=== PATIENT | male | born 1975 | race Caucasian/White ===

== ENCOUNTER 2020-05-18 23:47 | Emergency (ER) | payer SELFPAY ==
[2020-05-18] MEDS ORDERED: Sodium Chloride 0.9% 1,000 ML ONE (23:59)
[2020-05-19 00:44] LABS: Hemoglobin 13.4 g/dL (14.0-18.0); Mean Corpuscular HGB CONC 32.3 g/dL (32.0-36.0); Mean Corpuscular Hemoglobin 29.7 pg (27.0-31.0); Platelet Count 224 thou/uL (130-400); RBC Distribution Width 12.3 % (11.5-14.5); Red Blood Cell (RBC) Count 4.53 mill/uL (4.70-6.10); White Blood Cell (WBC) Count 10.2 thou/uL (4.8-10.8)
[2020-05-19 00:45] LABS: #Basophils 0.1 thou/uL (0.0-0.2); #Eosinphils 0.2 thou/uL (0.0-0.7); #Lymphocytes 1.9 thou/uL (1.20-3.40); #Monocytes 0.6 thou/uL (0.11-0.59); #Neutrophils 7.4 thou/uL (1.40-6.50); %Eosinophils 1.5 % (0.0-10.0); %Lymphocytes 18.9 % (21.0-51.0); %Monocytes 6.1 % (0.0-10.0); %Neutrophils 72.5 % (42.0-75.0); Manual Diff?? NO; Mean Platelet Volume 8.2 fL (7.4-10.4)
[2020-05-19 00:54] LABS: ALT (SGPT) 38 U/L (8-55); AST (SGOT) 48 U/L (5-34); Albumin 4.4 g/dL (3.5-5.0); Alcohol Less than 10 mg/dL (Less than 10); Alkaline Phosphatase 50 U/L (40-110); Anion Gap 15 mmol/L (10-20); BUN (Urea Nitrogen) 16 mg/dL (8.9-20.6); Bilirubin, Total 1.2 mg/dL (0.2-1.2); CK (CPK) 1385 U/L (30-200); Calc. Creatinine Clearance 0 mL/min (70-130); Calcium 9.4 mg/dL (7.8-10.44); Carbon Dioxide 24 mmol/L (22-29); Chloride 104 mmol/L (98-107); Estimated GFR-MDRD 39; Glucose 105 mg/dL (70-105); Potassium 3.2 mmol/L (3.5-5.1); Protein, Total 7.4 g/dL (6.0-8.3); Sodium 140 mmol/L (136-145)
[2020-05-19] MEDS ORDERED: Sodium Chloride 0.9% 2,000 ML ONE (01:39)
[2020-05-19 01:49] LABS: Alcohol Less than 10 mg/dL (Less than 10); Salicylate Less than 8.0 mg/dL (15.0-30.0)
[2020-05-19 01:53] LABS: Acetaminophen Less than 10.0 mcg/mL (10.0-30.0)
[2020-05-19 02:56] LABS: Amphetamine Detected (NotDetected); Barbiturates Screen Not Detected (NotDetected); Benzodiazepine Screen Not Detected (NotDetected); Cocaine Metabolite Screen Not Detected (NotDetected); Medtox Control Line Valid? VALID (VALID); Methadone Not Detected (NotDetected); Methamphetamine Detected (NotDetected); Opiate Screen Not Detected (NotDetected); Oxycodone Screen Not Detected (NotDetected); Phencyclidine (PCP) Not Detected (NotDetected); THC/Cannabinoid Screen Not Detected (NotDetected); Tricyclic Screen Not Detected (NotDetected)
== END 2020-05-19 03:55 ==
LOC: NAV ERS 23:47
DX: M62.82 Rhabdomyolysis (principal); F15.129 Other stimulant abuse with intoxication, unspecified; F41.9 Anxiety disorder, unspecified; F17.200 Nicotine dependence, unspecified, uncomplicated
CPT/HCPCS: 51701; 80053; 80306; 80307; 82550; 85025; 96360; 96361; J7050